=== PATIENT | female | born 1940 | race Caucasian/White ===

== ENCOUNTER 2018-07-16 13:46 | Emergency (ER) | payer MEDICARE ==
--- NOTE | 2018-07-16 14:26 | ED Physician Documentation ---
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 - Present Medications Home Medications: Ambulatory Orders Medication Instructions Recorded Confirmed Aspirin Chewable [St Vish 81 mg 07/16/18 Aspirin] Atorvastatin [Lipitor] 10 mg 07/16/18 Lisinopril 2.5 mg PO 07/16/18 - Allergies Allergies/Adverse Reactions: Allergies Allergy/AdvReac Type Severity Reaction Status Date / Time No Known Drug Allergies Allergy Verified 07/16/18 13:54 - Social History Does the pt smoke?: No Smoking Status: Never smoker Does the pt drink ETOH?: Yes Does the pt have substance abuse?: No - Immunizations Immunizations are current?: Yes PD ED PE NORMAL - Vitals Vital signs reviewed: Yes - Extremities Extremities: Other (brised and swollen L 5th toe, no foot pain, no open wound, MSV intact) Results - Vitals Vitals: Vital Signs - 24 hr 07/16/18 13:50 Temperature 36.8 C Heart Rate 69 Respiratory 18 Rate Blood Pressure 130/64 O2 Saturation 98 Oxygen O2 Source Room air Departure - Departure Disposition: 01 Home, Self Care Clinical Impression: Toe fracture Qualifiers: Encounter type: initial encounter Toe: lesser toe Fracture type: closed Phalanx: proximal Fracture alignment: nondisplaced Laterality: left Qualified Code(s): S92.515A - Nondisplaced fracture of proximal phalanx of left lesser toe(s), initial encounter for closed fracture Condition: Good Instructions: ED Fx Toe Closed Follow-Up: Med Vera MD [Primary Care Provider] -
--- NOTE | 2018-07-16 14:59 | XRAY Report ---
Reason: 5th toe injury Procedure Date: 07/16/2018 Accession Number: [id number] / [id number] Procedure: XR - Toe(s) LT CPT Code: FULL RESULT: EXAM: LEFT TOE RADIOGRAPHY EXAM DATE: 07/16/2018 02:46 PM. CLINICAL HISTORY: 5th toe injury. Soft tissue swelling COMPARISON: None. TECHNIQUE: 3 views. FINDINGS: Bones: Fifth digit proximal phalanx oblique fracture with angulation along the dorsal aspect. Joints: Normal. No subluxations. Soft Tissues: Soft tissue swelling. IMPRESSION: Fifth digit proximal phalanx fracture RADIA
[2018-07-16 15:50] VITALS: BP 128/62
== END 2018-07-16 15:49 | disposition home or self-care (01) ==
LOC: ED 13:46
DX: S92.515A Nondisplaced fracture of proximal phalanx of left lesser toe(s), initial encounter for closed fracture (principal); W22.09XA Striking against other stationary object, initial encounter; I10 Essential (primary) hypertension; Z79.82 Long term (current) use of aspirin
CPT/HCPCS: 73660; 99282; 99283

== ENCOUNTER 2018-08-16 14:54 | Emergency (ER) | payer MEDICARE ==
[2018-08-16 15:05] VITALS: BP 135/56
--- NOTE | 2018-08-16 15:23 | ED Physician Documentation ---
PD HPI LOWER EXT INJURY - Stated complaint Stated Complaint: L FOOT PX - Chief complaint Chief Complaint: Ext Problem - History obtained from History obtained from: Patient - History of Present Illness PD HPI LOW EXT INJURY LOCATION: Left (She stubbed her left pinky toe about 4 weeks ago and broke it. She had recurrent pain about 2 weeks later and was re-x-rayed which showed no displacement. 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 - Present Medications Home Medications: Ambulatory Orders Medication Instructions Recorded Confirmed RX: Aspirin Chewable [St Vish 81 mg 07/16/18 Aspirin] RX: Atorvastatin [Lipitor] 10 mg 07/16/18 RX: Lisinopril 2.5 mg PO 07/16/18 - Allergies Allergies/Adverse Reactions: Allergies Allergy/AdvReac Type Severity Reaction Status Date / Time No Known Drug Allergies Allergy Verified 08/16/18 15:05 - Social History Does the pt smoke?: No Smoking Status: Never smoker Does the pt drink ETOH?: Yes Does the pt have substance abuse?: No - Immunizations Immunizations are current?: Yes - POLST Patient has POLST: No PD ED PE NORMAL - Vitals Vital signs reviewed: Yes - General General: Alert and oriented X 3, No acute distress - Extremities Extremities: Other (No deformity or significant tenderness of the left small toe with normal cap refill.) - Neuro Neuro: Alert and oriented X 3, Normal speech Results - Vitals Vitals: Vital Signs - 24 hr 08/16/18 14:57 Temperature 36.9 C Heart Rate 71 Respiratory 18 Rate Blood Pressure 135/56 H O2 Saturation 100 Oxygen O2 Source Room air - Rads (name of study) L 5th toe Radiology: EMP read contemporaneously (Oblique fracture of the proximal phalanx without significant evidence of healing) PD MEDICAL DECISION MAKING - ED course ED course: She felt like the mitchell tape and shoe were not adequately immobilizing it but felt better with a boot. Departure - Departure Disposition: 01 Home, Self Care Clinical Impression: Toe fracture Condition: Good Instructions: ED Fx Toe Closed Follow-Up: [facility] [Provider Group] - Within 1 week Comments: Your blood pressure was elevated today on check into the emergency department. This does not mean that you have hypertension, it is a common phenomenon to come to the emergency department and have elevated blood pressure. I recommend that you see your primary care physician within the week to have it rechecked when you are feeling better. Discharge Date/Time: 08/16/18 16:31
--- NOTE | 2018-08-16 16:09 | XRAY Report ---
Reason: pain, previous fracture Procedure Date: 08/16/2018 Accession Number: [id number] / [id number] Procedure: XR - Toe(s) LT CPT Code: FULL RESULT: EXAM: LEFT TOE RADIOGRAPHY EXAM DATE: 08/16/2018 03:35 PM. CLINICAL HISTORY: Pain, previous fracture. COMPARISON: TOE(S) LT 07/16/2018 2:33 PM. TECHNIQUE: 3 views. FINDINGS: Again seen is a 5th proximal phalanx oblique fracture, without evidence of interval sclerosis/callous formation since 07/16/18 radiograph. Overall increased diffuse soft tissue swelling of the 5th phalanx. IMPRESSION: 5th proximal phalanx oblique fracture without evidence of interval healing. Overall increase in diffuse soft tissue swelling of the 5th phalanx. RADIA
== END 2018-08-16 16:31 | disposition home or self-care (01) ==
LOC: ED 14:54
DX: S92.512A Displaced fracture of proximal phalanx of left lesser toe(s), initial encounter for closed fracture (principal); W22.8XXA Striking against or struck by other objects, initial encounter; I10 Essential (primary) hypertension; Z79.82 Long term (current) use of aspirin
CPT/HCPCS: 73660; 99282; 99283

== ENCOUNTER 2018-10-07 15:55 | Outpatient (CLI) | payer MEDICARE ==
--- NOTE | 2018-10-08 08:46 | XRAY Report ---
Reason: FRACTURE OF UNSP METATARSAL BONE(S), LEFT FOOT, IN Procedure Date: 10/07/2018 Accession Number: [id number] / [id number] Procedure: XR - Foot 3 View LT CPT Code: FULL RESULT: EXAM: LEFT FOOT RADIOGRAPHY EXAM DATE: 10/07/2018 04:53 PM. CLINICAL HISTORY: Fracture of fifth digit bone(s), left foot, persistent pain, follow-up. COMPARISON: Toe(s) left 08/16/2018 3:20 PM. TECHNIQUE: 3 views. FINDINGS: Bones: Interval slightly increased sclerotic density in the minimally displaced fracture of the mid distal portion of the proximal phalanx of the fifth digit visualized. The radiolucency of this fracture remains, without significant interval changes. No new fracture or bony destructive lesion seen. No fractures or bone lesions. Joints: No subluxations. Soft Tissues: No significant changes of the soft tissue swelling abutting the fifth proximal phalanx fracture. IMPRESSION: Interval mild healing process in the oblique fracture of the proximal phalanx of the fifth digit, as described. RADIA
== END 2018-10-07 15:56 | disposition home or self-care (01) ==
LOC: DI 15:55
PROVIDERS: ATTEND Family Medicine
DX: S92.512A Displaced fracture of proximal phalanx of left lesser toe(s), initial encounter for closed fracture (principal)

== ENCOUNTER 2018-10-07 16:57 | Emergency (ER) | payer MEDICARE ==
[2018-10-07 17:09] VITALS: BP 129/92
--- NOTE | 2018-10-07 17:39 | ED Physician Documentation ---
PD HPI LOWER EXT INJURY - Stated complaint Stated Complaint: LEFT TOE PAIN - Chief complaint Chief Complaint: Ext Problem - History obtained from History obtained from: Patient - History of Present Illness PD HPI LOW EXT INJURY LOCATION: Left (Broke her toe 07/15. Not healing Well. 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 - Present Medications Home Medications: Ambulatory Orders Medication Instructions Recorded Confirmed Aspirin Chewable [St Vish 81 mg PO DAILY 07/16/18 10/07/18 Aspirin] Atorvastatin [Lipitor] 10 mg PO DAILY 07/16/18 10/07/18 - Allergies Allergies/Adverse Reactions: Allergies Allergy/AdvReac Type Severity Reaction Status Date / Time No Known Drug Allergies Allergy Verified 10/07/18 17:09 - Social History Does the pt smoke?: No Smoking Status: Never smoker Does the pt drink ETOH?: Yes Does the pt have substance abuse?: No - Immunizations Immunizations are current?: Yes - POLST Patient has POLST: No PD ED PE NORMAL - Vitals Vital signs reviewed: Yes - General General: Alert and oriented X 3, No acute distress - Extremities Extremities: Other (Tender left small toe without deformity) - Neuro Neuro: Alert and oriented X 3, Normal speech Results - Vitals Vitals: Vital Signs - 24 hr 10/07/18 17:07 Temperature 36.6 C Heart Rate 79 Respiratory 20 Rate Blood Pressure 129/92 H O2 Saturation 100 Oxygen O2 Source Room air PD MEDICAL DECISION MAKING - ED course ED course: Outpatient images from today reviewed. 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 In the interim she will go back in a boot and follow-up with a foot and ankle specialist. Departure - Departure Disposition: 01 Home, Self Care Clinical Impression: Toe fracture Qualifiers: Encounter type: subsequent encounter Toe: lesser toe Fracture type: closed Phalanx: proximal Fracture alignment: displaced Laterality: left Fracture healing: with nonunion Qualified Code(s): S92.512K - Displaced fracture of proximal phalanx of left lesser toe(s), subsequent encounter for fracture with nonunion Condition: Good Record reviewed to determine appropriate education?: Yes Comments: Keep it in the boot for now. I recommend following up with a foot and ankle specialist, the number the [facility] is [phone].
== END 2018-10-07 18:00 | disposition home or self-care (01) ==
LOC: ED 16:57
DX: S92.512K Displaced fracture of proximal phalanx of left lesser toe(s), subsequent encounter for fracture with nonunion (principal); X58.XXXD Exposure to other specified factors, subsequent encounter; I10 Essential (primary) hypertension; Z79.82 Long term (current) use of aspirin
CPT/HCPCS: 99282

== ENCOUNTER 2018-10-29 17:03 | Emergency (ER) | payer MEDICARE ==
[2018-10-29 17:57] LABS: BASOPHILS % (AUTO) 0.3 %; EOSINOPHILS # (AUTO) 0.2 10^3/uL (0.0-0.7); EOSINOPHILS % (AUTO) 3.9 %; HGB - HEMOGLOBIN 12.2 g/dL (12.0-16.0); LYMPHOCYTES # (AUTO) 1.7 10^3/uL (1.5-3.5); LYMPHOCYTES % (AUTO) 29.2 %; MEAN CORPUSCULAR HEMOGLOBIN 30.9 pg (27.0-31.0); MEAN CORPUSCULAR HGB CONC 32.9 g/dL (32.0-36.0); MEAN CORPUSCULAR VOLUME 93.8 fL (81.0-99.0); MEAN PLATELET VOLUME 7.3 fL (7.9-10.8); MONOCYTES # (AUTO) 0.4 10^3/uL (0.0-1.0); MONOCYTES % (AUTO) 6.2 %; NEUTROPHILS # (AUTO) 3.4 10^3/uL (1.5-6.6); NEUTROPHILS % (AUTO) 60.4 %; PLT - PLATELET COUNT 246 10^3/uL (130-450); RED BLOOD COUNT 3.96 10^6/uL (4.20-5.40); RED CELL DISTRIBUTION WIDTH 13.5 % (12.0-15.0); WHITE BLOOD COUNT 5.7 x10^3/uL (4.8-10.8)
[2018-10-29 18:11] LABS: ALBUMIN 4.2 g/dL (3.2-5.5); ALBUMIN/GLOBULIN RATIO 1.8 (1.0-2.2); BILIRUBIN,TOTAL 0.9 mg/dL (0.2-1.0); CALCIUM 9.8 mg/dL (8.5-10.3); CREATININE 0.8 mg/dL (0.4-1.0); TOTAL PROTEIN 6.6 g/dL (6.7-8.2)
[2018-10-29] MEDS ORDERED: SODIUM CHLORIDE 0.9% 1,000 ML IV ONE (18:49)
[2018-10-29] MEDS ORDERED: IOPAMIDOL-300 100 ML VIAL ONE (19:22)
[2018-10-29] MEDS ORDERED: IOPAMIDOL-300 100 ML VIAL IVP ONE (19:53)
[2018-10-29 20:17] LABS: BILIRUBIN,URINE NEGATIVE (NEGATIVE); GLUCOSE, URINE (UA) NEGATIVE (NEGATIVE); KETONES,URINE (UA) 15 mg/dL (NEGATIVE); LEUKOCYTE ESTERASE, URINE NEGATIVE (NEGATIVE); NITRITE,URINE NEGATIVE (NEGATIVE); OCCULT BLOOD,URINE NEGATIVE (NEGATIVE); PROTEIN,URINE NEGATIVE (NEGATIVE); UROBILINOGEN,URINE 0.2 (NORMAL) E.U./dL (NORMAL)
--- NOTE | 2018-10-29 20:19 | CT Report ---
Reason: Dizziness, confusion Procedure Date: 10/29/2018 Accession Number: [id number] / [id number] Procedure: CT - ANGIO HEAD W CPT Code: FULL RESULT: EXAM: CT ANGIOGRAM HEAD. CT SCAN OF THE HEAD WITHOUT AND WITH CONTRAST. EXAM DATE: 10/29/2018 07:51 PM CLINICAL HISTORY: 77-year-old female. Dizziness, confusion. COMPARISON: CT HEAD W/O CONT 12/04/2012 7:19 PM. TECHNIQUE: - CT Scan Head: Using a multidetector scanner, axial images were acquired from the foramen magnum to the skull vertex prior to and following contrast administration. - CT Angiogram: Using a multidetector scanner, high-resolution axial images were acquired from the skull base through vertex following rapid infusion of intravenous contrast. Reformats: Multiplanar MIP reformats were reconstructed. Nascet criteria used for stenosis measurement. IV Contrast: 80 ML ISOVUE 300. In accordance with CT protocol optimization, one or more of the following dose reduction techniques were utilized for this exam: automated exposure control, adjustment of mA and/or KV based on patient size, or use of iterative reconstructive technique. FINDINGS: NON-CONTRAST HEAD: Parenchyma: No intraparenchymal hemorrhage. No evidence of mass, midline shift, or CT findings of infarction. Ibarra-white differentiation is distinct. Scattered periventricular and deep white matter hypodensities. No abnormal enhancement of the postcontrast CT head. Extraaxial Spaces: Normal for age. No subdural or epidural collections identified. Ventricles: Mild ventriculomegaly, likely representing ex-vacuo dilatation. Sinuses and orbits: Imaged paranasal sinuses, orbits, and mastoids show no significant abnormality. Bones: No evidence of fracture or calvarial defect. Other: None. POST-CONTRAST HEAD: No abnormal enhancement. CT ANGIOGRAM HEAD: Mild atherosclerosis right carotid siphon, no hemodynamically significant stenosis. Patent right posterior communicating artery. Mild atherosclerosis left carotid siphon, no hemodynamically significant stenosis. The left posterior communicating artery not clearly visualized, likely hypoplastic or aplastic. The left CLAIM ANALYST is unremarkable. The right CLAIM ANALYST is unremarkable. The right MCA is unremarkable. The ACAs bilaterally are unremarkable. The left MCA is unremarkable. DURAL VENOUS SINUSES AND MAJOR CENTRAL VEINS: Patent. IMPRESSION: 1. No evidence of acute intracranial abnormality on the noncontrast CT head. Specifically, no evidence of acute infarct, intracranial hemorrhage, mass effect, midline shift, or hydrocephalus. 2. Scattered periventricular and deep white matter hypodensities. While nonspecific, these are favored to represent sequela of chronic microangiopathy. 3. No abnormal enhancement on the postcontrast CT head. 4. No CTA evidence of hemodynamically significant stenosis, large vessel occlusion, acute dissection, aneurysm, or vascular malformation within intracranial arteries. 5. Concurrently obtained CTA neck is dictated separately. RADIA
[2018-10-29 20:23] LABS: CLARITY,URINE CLEAR (CLEAR)
--- NOTE | 2018-10-29 20:28 | CT Report ---
Reason: Dizziness, confusion Procedure Date: 10/29/2018 Accession Number: [id number] / [id number] Procedure: CT - ANGIO NECK W/WO CPT Code: FULL RESULT: EXAM: CT ANGIOGRAM NECK EXAM DATE: 10/29/2018 07:48 PM. CLINICAL HISTORY: 77-year-old female. Dizziness, confusion. COMPARISON: CT HEAD W/O CONT 12/04/2012 7:19 PM. TECHNIQUE: Routine axial helical imaging was performed from the skull base through the aortic arch. Reconstructions: Routine multiplanar 3D MIP reconstructions. IV Contrast: 80 ML ISOVUE 300. Evaluation of arterial stenosis is based on a NASCET method of measurement. In accordance with CT protocol optimization, one or more of the following dose reduction techniques were utilized for this exam: automated exposure control, adjustment of mA and/or KV based on patient size, or use of iterative reconstructive technique. FINDINGS: Right Carotid: The common carotid, internal carotid, and external carotid arteries are widely patent. No dissection, significant atherosclerotic plaque, or calcification identified. Left Carotid: The common carotid, internal carotid, and external carotid arteries are widely patent. No dissection, significant atherosclerotic plaque, or calcification identified. Vertebrals: The vertebrobasilar system shows no stenoses. Intracranial Circulation: Concurrently obtained CTA head is dictated separately. Other: The visualized lung apices are clear. Mild to moderate multilevel degenerative spondylosis of the visualized spine, no acute fracture or malalignment. The thyroid gland is heterogeneous and enlarged with a 2.7 cm heterogeneous, primarily hypodense lesion within the left thyroid lobe (series 2 image 179). The visualized soft tissues of the neck are otherwise unremarkable. IMPRESSION: 1. Normal neck CT angiogram. No hemodynamically significant stenoses. 2. Concurrently obtained CTA head is dictated separately. 3. The thyroid gland is heterogeneous and enlarged with a 2.7 cm heterogeneous, primarily hypodense lesion within the left thyroid lobe (series 2 image 179). As the CT appearance is nonspecific, recommend follow-up nonemergent thyroid ultrasound to further evaluate. RADIA
--- NOTE | 2018-10-29 20:31 | XRAY Report ---
Reason: Palpitations Procedure Date: 10/29/2018 Accession Number: [id number] / [id number] Procedure: XR - Chest 2 View X-Ray CPT Code: 36185 FULL RESULT: EXAM: CHEST RADIOGRAPHY EXAM DATE: 10/29/2018 08:03 PM. CLINICAL HISTORY: Palpitations. Near syncope. COMPARISON: None. TECHNIQUE: 2 views. FINDINGS: Lungs/Pleura: No focal opacities or vascular congestion. No pleural effusion or pneumothorax. Borderline hyperinflation. Mediastinum: Normal heart size. Tortuous aorta. Other: Thoracic spondylosis. No acute fracture evident. IMPRESSION: 1. No cardiopulmonary decompensation radiographically. 2. Borderline hyperinflation. 3. Normal heart size. Senescent aorta. RADIA
--- NOTE | 2018-10-29 20:55 | XRAY Report ---
Reason: wrist injury Procedure Date: 10/29/2018 Accession Number: [id number] / [id number] Procedure: XR - Wrist 3 View LT CPT Code: FULL RESULT: EXAM: LEFT WRIST RADIOGRAPHY EXAM DATE: 10/29/2018 08:03 PM. CLINICAL HISTORY: Wrist injury. COMPARISON: HAND 3 VIEW LT 10/29/2018 7:42 PM. TECHNIQUE: 3 views. FINDINGS: Bones: Transverse fracture through the distal left radial metaphysis. There may be a slight component of some impaction. No significant displacement or angulation. Well-corticated ossicle adjacent to the first carpometacarpal joint. Joints: Joint space loss with subchondral cystic change at the first carpometacarpal joint. Soft Tissues: Mild soft tissue swelling. IMPRESSION: 1. Transverse fracture of the distal left radial metaphysis, possibly with a component of some impaction, but no significant displacement or angulation. 2. Degenerative joint disease of the first carpometacarpal joint. RADIA
--- NOTE | 2018-10-29 20:58 | XRAY Report ---
Reason: pain Procedure Date: 10/29/2018 Accession Number: [id number] / [id number] Procedure: XR - Hand 3 View LT CPT Code: FULL RESULT: EXAM: LEFT HAND RADIOGRAPHY EXAM DATE: 10/29/2018 08:03 PM. CLINICAL HISTORY: Pain. COMPARISON: None. TECHNIQUE: 3 views. FINDINGS: Bones: See Wrist series for distal radial fracture. No fractures of the hand. Joints: Minimal joint space loss of the distal interphalangeal joints, some bony proliferation and spurring. No erosions. There is some subchondral cystic change at the middle phalanx of the third digit at the DIP joint. Joint space narrowing with subchondral cystic change at the first carpometacarpal joint with mild bony proliferation. Adjacent well-corticated ossicle. Soft Tissues: No radiopaque foreign bodies. No obvious soft tissue swelling. IMPRESSION: 1. 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 2. No radiopaque foreign bodies. 3. See wrist series for suspicion of distal radial fracture. RADIA
--- NOTE | 2018-10-29 21:43 | ED Physician Documentation ---
History of Present Illness - Stated complaint Stated Complaint: NEAR SYNCOPE - Chief complaint Chief Complaint: Neuro - Additonal information Additional information: 77-year-old female presents the emergency department with a sudden onset of dizziness which occurred today while driving. The patient felt like she was having an out of body experience and describes a spinning and lightheaded sensation which lasted for roughly 20 minutes. The patient reports palpitations associated with the experience. The patient denies confusion, neck pain, focal motor weakness, focal sensory changes, difficulty with speech or inability to comprehend. The patient now has a headache and feels mildly lightheaded. The patient also reports pain in her left wrist after falling into an object several days ago. The patient is also concerned she may have glass in her palm secondary to the fall. No other acute symptoms. Review of Systems Constitutional: denies: Fever, Chills Eyes: denies: Discharge Ears: denies: Ear pain Nose: denies: Congestion Throat: denies: Sore throat Cardiac: reports: Palpitations. denies: Chest pain / pressure Respiratory: denies: Dyspnea, Cough GI: denies: Abdominal Pain : denies: Dysuria Skin: denies: Rash Musculoskeletal: reports: Joint pain. denies: Neck pain Neurologic: reports: Headache. 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 - Present Medications Home Medications: Ambulatory Orders Medication Instructions Recorded Confirmed Aspirin Chewable [[place] Vish 81 mg PO DAILY 07/16/18 10/07/18 Aspirin] Atorvastatin [Lipitor] 10 mg PO DAILY 07/16/18 10/07/18 Hydrocodone/Acetaminophen [[place] 1 each PO Q6HR PRN #10 tablet 10/29/18 5-325 Tablet] - Allergies Allergies/Adverse Reactions: Allergies Allergy/AdvReac Type Severity Reaction Status Date / Time No Known Drug Allergies Allergy Verified 10/07/18 17:09 - Social History Does the pt smoke?: No Smoking Status: Never smoker Does the pt drink ETOH?: Yes Does the pt have substance abuse?: No - Immunizations Immunizations are current?: Yes - POLST Patient has POLST: No PD ED PE NORMAL - General General: Alert and oriented X 3, No acute distress - HEENT HEENT: Atraumatic, PERRL, EOMI, Ears normal, Pharynx benign - Neck Neck: Supple, no meningeal sign, No bruit - Cardiac Cardiac: RRR, Strong equal pulses - Respiratory Respiratory: No respiratory distress, Clear bilaterally - Abdomen Abdomen: Soft, Non tender - Derm Derm: Normal color - Extremities Extremities: Other (The patient has tenderness to palpation of the left wrist, she has normal range of motion, there is some bruising, the patient has normal radial pulse and normal cap refill. The patient has abrasions in the volar aspect of her hand on the left. There is no palpable foreign body or laceration. 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 Normal sensation to light touch. Normal 2/4 patellar reflexes. Normal finger to nose and heel to cisneros) - Psych Psych: Normal mood Results - Vitals Vitals: Vital Signs - 24 hr 10/29/18 10/29/18 10/29/18 17:06 20:12 22:00 Temperature 36.7 C 36.6 C Heart Rate 87 80 85 Respiratory 18 16 20 Rate Blood Pressure 145/79 H 154/66 H 155/89 H O2 Saturation 100 99 99 Oxygen O2 Source Room air - EKG (time done) No standard instances Rhythm: NSR Intervals: Normal MN, QRS normal QRS: Normal Ischemia: Normal ST segments - Labs Labs: Laboratory Tests 10/29/18 10/29/18 10/29/18 17:20 17:51 17:51 WBC 5.7 RBC 3.96 L Hgb 12.2 Hct 37.1 MCV 93.8 MCH 30.9 MCHC 32.9 RDW 13.5 Plt Count 246 MPV 7.3 L Neut # (Auto) 3.4 Lymph # (Auto) 1.7 [place] # (Auto) 0.4 Eos # (Auto) 0.2 Baso # (Auto) 0.0 Absolute Nucleated RBC 0.00 Nucleated RBC % 0.0 Sodium 139 Potassium 4.0 Chloride 103 Carbon Dioxide 25 Anion Gap 11.0 BUN 18 Creatinine 0.8 Estimated GFR (MDRD) 70 L Glucose 86 POC Whole Bld Glucose 75 Calcium 9.8 Total Bilirubin 0.9 AST 26 ALT 16 Alkaline Phosphatase 54 Troponin I Total Protein 6.6 L Albumin 4.2 Globulin 2.4 Albumin/Globulin Ratio 1.8 Lipase 39 Urine Color Urine Clarity Urine pH Ur Specific [place] Urine Protein Urine Glucose (UA) Urine Ketones Urine Occult Blood Urine Nitrite Urine Bilirubin Urine Urobilinogen Ur Leukocyte Esterase Ur Microscopic Review Urine Culture Comments 10/29/18 10/29/18 10/29/18 17:51 19:05 20:05 WBC RBC Hgb Hct MCV MCH MCHC RDW Plt Count MPV Neut # (Auto) Lymph # (Auto) [place] # (Auto) Eos # (Auto) Baso # (Auto) Absolute Nucleated RBC Nucleated RBC % Sodium Potassium Chloride Carbon Dioxide Anion Gap BUN Creatinine Estimated GFR (MDRD) Glucose POC Whole Bld Glucose 85 Calcium Total Bilirubin AST ALT Alkaline Phosphatase Troponin I < 0.04 Total Protein Albumin Globulin Albumin/Globulin Ratio Lipase Urine Color YELLOW Urine Clarity CLEAR Urine pH 6.0 Ur Specific [place] <=1.005 Urine Protein NEGATIVE Urine Glucose (UA) NEGATIVE Urine Ketones 15 H Urine Occult Blood NEGATIVE Urine Nitrite NEGATIVE Urine Bilirubin NEGATIVE Urine Urobilinogen 0.2 (NORMAL) Ur Leukocyte Esterase NEGATIVE Ur Microscopic Review NOT INDICATED Urine Culture Comments NOT INDICATED - Rads (name of study) XR wrist/hand Radiology: Final report received, See rad report (1. 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 2. No radiopaque foreign bodies. 3. See wrist series for suspicion of distal radial fracture. 1. Transverse fracture of the distal left radial metaphysis, possibly with a component of some impaction, but no significant displacement or angulation. 2. Degenerative joint disease of the first carpometacarpal joint. ) CTA head/neck Radiology: Final report received, See rad report (1. No evidence of acute intracranial abnormality on the noncontrast CT head. Specifically, no evidence of acute infarct, intracranial hemorrhage, mass effect, midline shift, or hydrocephalus. 2. Scattered periventricular and deep white matter hypodensities. While nonspecific, these are favored to represent sequela of chronic microangiopathy. 3. No abnormal enhancement on the postcontrast CT head.4. No CTA evidence of hemodynamically significant stenosis, large vessel occlusion, acute dissection, aneurysm, or vascular malformation within intracranial arteries. 5. Concurrently obtained CTA neck is dictated separately. 1. Normal neck CT angiogram. No hemodynamically significant stenoses. 2. Concurrently obtained CTA head is dictated separately. 3. The thyroid gland is heterogeneous and enlarged with a 2.7 cm heterogeneous, primarily hypodense lesion within the left thyroid lobe ) CXR Radiology: Final report received, See rad report (1. No cardiopulmonary decompensation radiographically. 2. Borderline hyperinflation. 3. Normal heart size. Senescent aorta. ) PD MEDICAL DECISION MAKING - ED course ED course: The patient's workup does not reveal any acute abnormality to explain her dizziness, I have the patient observation for an MRI to further assess it but she wants to follow-up with primary care To discuss things further. I discussed the incidental findings on her workup, the patient was already familiar with the microvascular disease and will have her primary arrange for an outpatient ultrasound of her thyroid. I discussed with the patient the acute finding of the wrist fracture and she will follow-up with orthopedics and the patient was splinted. I recommended returning to the emergency department immediately for any worsening or any concerns Departure - Departure Disposition: 01 Home, Self Care Clinical Impression: Dizziness, Thyroid nodule Distal radius fracture Qualifiers: Encounter type: initial encounter Fracture type: closed Fracture morphology: unspecified fracture morphology Laterality: unspecified laterality Qualified Code(s): S52.509A - Unspecified fracture of the lower end of unspecified radius, initial encounter for closed fracture Headache Qualifiers: Headache type: unspecified Headache chronicity pattern: unspecified pattern Intractability: not intractable Qualified Code(s): R51 - Headache Condition: Stable Follow-Up: [facility] [Provider Group] (Please call to schedule a follow- up appointment for evaluation of your distal radius fracture) Med Vera MD [Primary Care Provider] - Within 3 Days (Please ask your primary care to arrange for an outpatient MRI to further assess your symptoms. Please ask your primary to arrange for an outpatient ultrasound of your thyroid to further evaluate the findings seen on CT scan) Prescriptions: Hydrocodone/Acetaminophen [[place] 5-325 Tablet] 1 each PO Q6HR PRN #10 tablet PRN Reason: Pain Comments: Please return to the emergency department for worsening symptoms or any concerns Discharge Date/Time: 10/29/18 22:25
[2018-10-29 22:02] VITALS: BP 155/89
== END 2018-10-29 22:25 | disposition home or self-care (01) ==
LOC: ED 17:03
DX: R42 Dizziness and giddiness (principal); R51 Headache; S52.502A Unspecified fracture of the lower end of left radius, initial encounter for closed fracture; S60.512A Abrasion of left hand, initial encounter; W19.XXXA Unspecified fall, initial encounter; E04.1 Nontoxic single thyroid nodule; M19.042 Primary osteoarthritis, left hand; I10 Essential (primary) hypertension; Z79.82 Long term (current) use of aspirin
CPT/HCPCS: 36415; 70496; 70498; 71046; 73110; 73130; 80053; 81003; 83690; 84484; 85025; 93005; 96360; 99283; 99284; Q9967; 81001; 87086